=== PATIENT | female | born 1945 | race African-American/Black ===

== ENCOUNTER 2017-12-13 10:45 | Inpatient (IN) | payer MEDICARE, MEDICAID ==
[~2017-12-13] VITALS: Ht 154.9 cm; Wt 65.3 kg
[2017-12-13 11:52] LABS: BASOPHILS % 0.4 % (0.0-2.0); EOSINOPHILS % 1.4 % (0.0-5.0); HEMATOCRIT. 44.3 % (36.0-48.0); LYMPHOCYTES % 22.6 % (20.0-50.0); MEAN CORPUSCULAR HEMOGLOBIN 28.5 pg (28.0-32.0); MEAN CORPUSCULAR VOLUME 84.2 fL (81.0-99.0); MONOCYTES % 9.2 % (2.0-8.0); NEUTROPHILS % 66.4 % (40.0-76.0); RED BLOOD CELL COUNT 5.27 mill/uL (4.2-5.4)
[2017-12-13 11:56] LABS: CHLORIDE 103 mEq/L (98-107); INR 1.1; PROTHROMBIN TIME 10.6 sec (9.1-11.1)
[2017-12-13 13:11] LABS: PLATELET 126 x1000/uL (130-400)
[2017-12-13] MEDS ORDERED: ENOXAPARIN 60MG/0.6ML SYR SUBCUT ONE (14:00)
[2017-12-13] MEDS ORDERED: HYDROCODONE/ACETAMINOPHEN 5/325MG TABLET PO PRN (14:45)
[2017-12-13] MEDS ORDERED: ACETAMINOPHEN 325MG TABLET PO PRN (14:45)
[2017-12-13] MEDS ORDERED: CLONIDINE 0.1MG TABLET PO PRN (14:45)
[2017-12-13] MEDS ORDERED: IOHEXOL-350 100 ML BOTTLE ONE (16:40)
[2017-12-13 20:35] VITALS: BP 144/84
[2017-12-13] MEDS ORDERED: DEXTROSE 50% WATER 50ML SYRINGE IV PRN (23:30)
[2017-12-14 00:25] VITALS: BP 110/50
[2017-12-14] MEDS: ENOXAPARIN 60MG/0.6ML SYR SUBCUT SCH ×2 (01:58→13:17)
[2017-12-14 04:00] VITALS: BP 120/58
[2017-12-14 07:46] LABS: BASOPHILS % 0.5 % (0.0-2.0); EOSINOPHILS % 1.5 % (0.0-5.0); HEMATOCRIT. 39.7 % (36.0-48.0); HEMOGLOBIN. 13.4 g/dL (12.0-16.0); LYMPHOCYTES % 19.1 % (20.0-50.0); MEAN CORPUSCULAR HEMOGLOBIN 28.3 pg (28.0-32.0); MEAN CORPUSCULAR VOLUME 83.9 fL (81.0-99.0); MEAN PLATELET VOLUME 7.5 fl (7.4-10.4); NEUTROPHILS % 70.9 % (40.0-76.0); PLATELET 157 x1000/uL (130-400); RED BLOOD CELL COUNT 4.74 mill/uL (4.2-5.4); RED CELL DISTRIBUTION WIDTH 13.2 % (11.6-14.6)
[2017-12-14] MEDS: BLOOD SUGAR DIAGNOSTIC STRIP TEST SCH ×2 (07:58→13:12)
[2017-12-14] MEDS: INSULIN LISPRO 100 UNITS/ML SUBCUT SCH ×2 (07:58→13:10)
[2017-12-14 08:11] LABS: CHLORIDE 102 mEq/L (98-107)
[2017-12-14 12:00] VITALS: BP 102/56
[2017-12-14 13:42] VITALS: BP 102/60
[2017-12-14 16:00] VITALS: BP 114/65
== END 2017-12-14 17:05 | disposition home or self-care (01) | DRG 197 ==
LOC: ER 10:45 → 7WST 18:00 → ENRESERV 18:49
PROVIDERS: ADMIT Internal Medicine; ATTEND Internal Medicine
DX: I82.412 Acute embolism and thrombosis of left femoral vein (principal); I26.99 Other pulmonary embolism without acute cor pulmonale; I82.432 Acute embolism and thrombosis of left popliteal vein; E11.36 Type 2 diabetes mellitus with diabetic cataract; E44.0 Moderate protein-calorie malnutrition; Z79.84 Long term (current) use of oral hypoglycemic drugs
CPT/HCPCS: 36415; 71045; 71275; 80048; 80053; 82962; 83036; 85025; 85610; 93005; 93970; 96372; 99285; J1650; Q9967

== ENCOUNTER 2018-01-09 19:32 | Emergency (ER) | payer MEDICARE, MEDICAID ==
[~2018-01-09] VITALS: Ht 160 cm; Wt 75.0 kg
[2018-01-09 21:01] LABS: BASOPHILS % 0.5 % (0.0-2.0); HEMOGLOBIN. 13.7 g/dL (12.0-16.0); MEAN CORPUSCULAR HEMOGLOBIN 28.5 pg (28.0-32.0); MEAN CORPUSCULAR VOLUME 85.2 fL (81.0-99.0); MEAN PLATELET VOLUME 7.2 fl (7.4-10.4); MONOCYTES % 8.8 % (2.0-8.0); NEUTROPHILS % 56.7 % (40.0-76.0); PLATELET 215 x1000/uL (130-400); RED BLOOD CELL COUNT 4.81 mill/uL (4.2-5.4); RED CELL DISTRIBUTION WIDTH 14.5 % (11.6-14.6)
[2018-01-09 21:07] LABS: CHLORIDE 107 mEq/L (98-107)
[2018-01-09 21:08] LABS: INR 1.2; PARTIAL THROMBOPLASTIN TIME 31.9 sec (23.4-31.0)
[2018-01-09 22:19] LABS: CLARITY URINE TURBID (CLEAR); COLOR URINE RED (YELLOW); KETONES URINE NEGATIVE (NEGATIVE); LEUKOCYTE ESTERASE URINE 2+ (NEGATIVE); NITRITE URINE NEGATIVE (NEGATIVE); OCCULT BLOOD URINE 3+ (NEGATIVE); PH URINE 5.5 (4.5-8.0); PROTEIN URINE 2+ (NEGATIVE); SPECIFIC GRAVITY URINE 1.021 (1.005-1.030)
[2018-01-09 22:55] VITALS: BP 152/89
== END 2018-01-09 22:56 | disposition home or self-care (01) ==
LOC: ER 19:32
DX: R31.9 Hematuria, unspecified (principal); H26.9 Unspecified cataract; E11.9 Type 2 diabetes mellitus without complications; Z86.718 Personal history of other venous thrombosis and embolism; Z90.710 Acquired absence of both cervix and uterus
CPT/HCPCS: 36415; 80048; 86850; 86900; 99284